=== PATIENT | male | born 1955 | race Caucasian/White ===

== ENCOUNTER 2019-01-01 16:10 | Emergency (ER) | payer MEDICAID ==
[~2019-01-01] VITALS: Ht 172.7 cm; Wt 106.1 kg
[~2019-01-01 16:10] MED LIST: ACET325T33 PO; AMOX1TAB10 PO; CIPR2.5D15 RIGHT EYE; ERYT1OIN6 RIGHT EYE; HYDR-4011 PO
[2019-01-01 16:21] VITALS: BP 135/90; PULSE 97; RESP 18; Ht 172.7 cm; Wt 106.1 kg
--- NOTE | 2019-01-01 16:39 | ERD ---
ER Documentation Chief Complaint Chief Complaint left ear pain and swelling around ear x 1 week HPI 63-year-old male, previously healthy, presents to the emergency department, complaining of 1 week with progressive left mandibular pain and edema. The pain is sharp, radiating to the left ear. The patient denies ear discharge, no fever, no chills, no difficulty swallowing. The patient denies history of diabetes. ROS All systems reviewed and are negative except as per history of present illness. Medications Home Meds Active Scripts Hydrocodone/Acetaminophen (Crawley 5-325 Tablet) 1 Each Tablet, 1 TAB PO BID PRN for PAIN, #10 TAB Prov:ESTEBAN PUGA MD 01/01/19 Amoxicillin/Potassium Clav (Amox-Clav 875-125 mg Tablet) 875-125 mg Tab, 1 TAB PO BID for 7 Days, #14 TAB Prov:ESTEBAN PUGA MD 01/01/19 Acetaminophen* (Tylenol*) 325 Mg Tablet, 2 TAB PO Q8 PRN for PAIN AND OR ELEVATED TEMP, #20 TAB Prov:TONEY VELAZQUEZ 01/12/15 Ciprofloxacin Opht* (Ciloxan*) 0.3%-2.5 Ml Opht Drops, 2 DROP RIGHT EYE Q4, #1 BOTTLE Prov:[facility] 01/12/15 Erythromycin (Erythromycin Opth) 3.5 Gm Oint..gm., 1 APPLIC RIGHT EYE QID, #1 TUB Prov:TONEY VELAZQUEZ 01/12/15 Allergies Allergies: Coded Allergies: No Known Allergy (Unverified , 01/04/13) PMhx/Soc Medical and Surgical Hx: pt denies Medical Hx History of Surgery: No Anesthesia Reaction: No Hx Neurological Disorder: No Hx Respiratory Disorders: No Hx Cardiac Disorders: No Hx Psychiatric Problems: No Hx Miscellaneous Medical Probl: No Hx Alcohol Use: No Hx Substance Use: No Hx Tobacco Use: No FmHx Family History: diabetes; No coronary disease Physical Exam Vitals Vital Signs Date Temp Pulse Resp B/P (MAP) Pulse Ox O2 O2 Flow FiO2 Time Delivery Rate 01/01/19 98.6 97 18 135/90 98 16:21 (105) Physical Exam Patient alert, oriented, vital signs stable. HEAD: Left parotid gland swelling with tenderness to palpation, otherwise, normocephalic, atraumatic. EYES: PERRLA, EOMI, Sclera and conjunctiva appear normal. NOSE: Clear and patent nostrils. EARS: Canals clear, tympanic membranes WNL. MOUTH: normal lips and tongue, no oral lesions. THROAT: Normal oropharynx, no tonsillar exudates. NECK: Supple, No lymphadenopathy. Full ROM without pain or tenderness. HEART: RRR, no rubs, murmurs, clicks or gallops. LUNGS: Clear to auscultation. ABDOMEN: Soft, non-tender without masses or hepatosplenomegaly. EXTREMITIES: No edema bilaterally. BACK: Full ROM, no deformity, normal back exam NEURO: Cranial nerves grossly intact, no motor or sensory deficit SKIN: No rashes, no petechia. Procedures/MDM Vital signs stable, differential diagnosis include but not limited to: infection bacterial/viral/fungal. Tonsillitis, eustachian dysfunction, allergies, foreign body, cholesteatoma. Less likely mastoiditis, malignant otitis, meningitis. Physical examination and clinical presentation consistent most likely with infectious parotitis. During the ED course the patient remained stable, no new complaints. Clinical impression discussed with the patient who agrees with management. The patient is stable to be treated outpatient and will be discharged home with a Rx for antibiotics and Crawley. Some side effects of prescribed medications (headache, rash, nausea, vomiting, diarrhea, interactions with other medications) were reviewed. The patient was instructed to follow up with the primary care provider in the next 48h. If symptoms persist, worsen or new symptoms develop, then patient sh ould return to the ED immediately. Disclaimer: Inadvertent spelling and grammatical errors are likely due to EHR/dictation software use and do not reflect on the overall quality of patient care. Also, please note that the electronic time recorded on this note does not necessarily reflect the actual time of the patient encounter. Departure Diagnosis: Primary Impression: Infectious parotitis Condition: Stable Additional Instructions: Muchas roland por [facility] para belle servicio. Esperamos que en belle visita a la juan r de emergencia belle problema medico haya sido solucionado y que se sienta mucho mejor. Para estar seguros que belle mejoria sigue en proceso, le pedimos el favor de hacer eduardo beata de seguimiento medico con belle doctor primario en los proximos 2-4 casiano. Lleve con usted estos documentos y las medicinas recetadas. Si alonso sintomas empeoran, NO SE ESPERE, por favor regrese a juan r de emergencia INMEDIATAMENTE. En andressa que usted no tenga un mdico de atencin primaria: Llame al mdico o clnica comunitaria de referencia que aparece abajo farhana las horas de consultorio para hacer eduardo beata para que le vean. CLINICAS: [facility] [phone] [facility] [phone] [facility] [phone] [address] [facility] [phone] [place] [id number] [phone] [facility]. [phone] ESTEBAN VALDOVINOS MD Jan 01, 2019 16:39
== END 2019-01-01 16:41 | disposition home or self-care (01) ==
LOC: FTE 16:10 → E/R 16:41
DX: B26.9 Mumps without complication (principal)
CPT/HCPCS: 99283